=== PATIENT | male | born 1930 | race Caucasian/White ===

== ENCOUNTER 2016-08-30 02:17 | Emergency (ER) | payer OTHER, MEDICAID ==
[~2016-08-30] VITALS: Ht 188 cm; Wt 77.0 kg
[2016-08-30] MEDS ORDERED: PHENY100 PO (02:40)
[2016-08-30] MEDS ORDERED: TAMS0.4C32 PO (02:40)
[2016-08-30] MEDS ORDERED: FERR-89 PO (02:40)
[2016-08-30] MEDS ORDERED: THIA100 PO (02:40)
[2016-08-30] MEDS ORDERED: HYDR-309 PO (02:40)
[2016-08-30] MEDS ORDERED: ALBU8HFA4 IH (02:40)
[2016-08-30] MEDS ORDERED: TIOT4MIS2 IH (02:40)
[2016-08-30] MEDS ORDERED: ASPI-556 PO (02:40)
[2016-08-30] MEDS ORDERED: ZINC30OI4 TP (02:40)
[2016-08-30] MEDS ORDERED: TERA2 PO (02:40)
[2016-08-30] MEDS ORDERED: SIMV-261 PO (02:40)
[2016-08-30] MEDS ORDERED: MULT1CAP32 PO (02:40)
[2016-08-30] MEDS ORDERED: CYAN1TAB44 PO (02:40)
[2016-08-30] MEDS ORDERED: ASCO500C6 PO (02:40)
[2016-08-30] MEDS ORDERED: PHEN32.43 PO (02:40)
[2016-08-30] MEDS ORDERED: DOCU100C PO (02:40)
[2016-08-30 03:36] VITALS: BP 122/78
== END 2016-08-30 06:21 | disposition home or self-care (01) ==
LOC: EMS 02:20
DX: L89.159 Pressure ulcer of sacral region, unspecified stage (principal); J45.909 Unspecified asthma, uncomplicated; E78.00 Pure hypercholesterolemia, unspecified; J44.9 Chronic obstructive pulmonary disease, unspecified; N40.0 Benign prostatic hyperplasia without lower urinary tract symptoms; Z79.82 Long term (current) use of aspirin; Z88.1 Allergy status to other antibiotic agents; Z88.8 Allergy status to other drugs, medicaments and biological substances
CPT/HCPCS: 99283